=== PATIENT | male | born 1965 | race Caucasian/White ===

== ENCOUNTER 2018-06-11 16:34 | Observation (INO) | payer OTHER ==
[2018-06-11 17:24] LABS: Absolute Lymphocytes (CBC) 1.5 K/uL (0.7-4.9); Absolute Monocytes 0.7 K/uL (0.1-1.3); Absolute Neutrophil 7.8 K/uL (1.8-8.0); Basophils % 0.4 % (0-1.3); Eosinophils % 4.8 % (0-4.4); Hematocrit 38.8 % (39.6-49.0); Lymphocytes % 13.9 % (15.3-44.8); MCH 31.9 pg (27.0-35.0); MCV 92.8 fL (80-100); MPV 8.2 fL (7.6-11.3); Monocytes % 6.6 % (3.3-12.3); RBC Red Blood Cell Count 4.18 M/uL (4.33-5.43)
[2018-06-11 17:30] LABS: Protime INR 1.1
--- NOTE | 2018-06-11 17:34 | RAD REPORT ---
EXAM DESCRIPTION: RAD - Femur Left - 06/11/2018 5:26 pm CLINICAL HISTORY: Pain;Swelling Fall COMPARISON: No comparisons FINDINGS: No fracture or dislocation seen.
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
[2018-06-11 17:41] LABS: Bilirubin Total 1.1 mg/dL (0.2-1.0); Potassium 3.9 mmol/L (3.5-5.1); Protein, Total 7.4 g/dL (6.4-8.2)
--- NOTE | 2018-06-11 17:53 | RAD REPORT ---
EXAM DESCRIPTION: US - Extremity Nonvascular Limited - 06/11/2018 5:46 pm CLINICAL HISTORY: Pain;Swelling TECHNIQUE: Real-time sonographic evaluation of the area of interest was performed. FINDINGS: Poorly defined heterogenous but largely hypoechoic collection is seen along the lateral as pect of the thigh. This likely represents a large hematoma. No worrisome mass identified.
[2018-06-11] MEDS ORDERED: NA CHLORIDE 0.9% 2,000 ML ONE (18:28)
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
[2018-06-11] MEDS ORDERED: TETANUS & DIPHTHERIA TOX,ADULT 0.5 ML VIAL ONE (19:35)
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
[2018-06-11] MEDS ORDERED: ONDANSETRON 4 MG/2 ML VIAL IV PRN (19:58)
[2018-06-11] MEDS ORDERED: ACETAMINOPHEN 500 MG TAB ONE (20:28)
[2018-06-12 00:18] LABS: Hematocrit 32.3 % (39.6-49.0)
[2018-06-12] MEDS: ACETAMINOPHEN 500 MG TAB PO PRN ×2 (02:54→10:23)
[2018-06-12 03:09] LABS: Urine Appearance CLEAR; Urine Bilirubin NEGATIVE (NEG); Urine Blood NEGATIVE (NEG); Urine Color YELLOW; Urine Glucose NEGATIVE (NEG); Urine Protein NEGATIVE (NEG); Urine Specific Gravity >=1.030 (1.005-1.030); Urine Urobilinogen 0.2 mg/dL (0.2-1.0)
[2018-06-12 03:46] LABS: Urine Microscopic Reflex NO UMIC
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
[2018-06-12 05:35] LABS: Absolute Lymphocytes (CBC) 1.8 K/uL (0.7-4.9); Absolute Monocytes 1.1 K/uL (0.1-1.3); Absolute Neutrophil 5.6 K/uL (1.8-8.0); Basophils % 0.5 % (0-1.3); Eosinophils % 4.1 % (0-4.4); Hematocrit 33.3 % (39.6-49.0); Lymphocytes % 19.9 % (15.3-44.8); MCH 32.3 pg (27.0-35.0); MCV 93.3 fL (80-100); MPV 8.2 fL (7.6-11.3); Monocytes % 12.3 % (3.3-12.3); RBC Red Blood Cell Count 3.57 M/uL (4.33-5.43)
[2018-06-12 05:49] LABS: Protime INR 1.09
[2018-06-12 05:55] LABS: Potassium 4.4 mmol/L (3.5-5.1)
--- NOTE | 2018-06-12 08:07 | EKG ---
Test Date: 2018-06-11 Test Time: 18:20:43 Chairman Of The Board: MICHELLE MEASUREMENT RESULTS: Intervals: Rate: 46 CA: 128 QRSD: 88 QT: 430 QTc: 376 [place]: P: 69 CA: 128 QRS: 77 T: 47 INTERPRETIVE STATEMENTS: Sinus bradycardia Possible Left atrial enlargement Borderline ECG No previous ECG available for comparison Electronically Signed On 06-12-18 08:06:48 CDT by Torsten Garrett
--- NOTE | 2018-06-12 11:08 | P.DS ---
Admission Date: 06/11/18 Discharge Date: 06/12/18 Disposition: ROUTINE DISCHARGE Discharge Condition: GOOD Hospital Course: unremarkable Vital Signs/Physical Exam: Temp Pulse Resp BP Pulse Ox 98.1 F 57 20 119/76 99 06/12/18 08:00 06/12/18 08:00 06/12/18 08:00 06/12/18 08:00 06/12/18 08:00 General: Alert, In no apparent distress, Oriented x3, Cooperative HEENT: Normocephalic, PERRLA, Sclerae nonicteric Neck: Supple Respiratory: Clear to auscultation bilaterally Cardiovascular: No edema, Normal pulses Gastrointestinal: Soft and benign, No tenderness, No rebound, No guarding Musculoskeletal: No erythema, No warmth, Other (hematome stable, non pulsatile) Integumentary: Skin breakdown (abrasions superficial) Neurological: Normal speech, Cranial nerves 3-12 intact External genitalia: No edema, Non-tender Rectal: Deferred Laboratory Data at Discharge: WBC 8.9 K/uL (4.3-10.9) D 06/12/18 05:21 Hgb 11.5 g/dL (13.6-17.9) L 06/12/18 05:21 Hct 33.3 % (39.6-49.0) L 06/12/18 05:21 Plt Count 146 K/uL (152-406) L 06/12/18 05:21 PT 12.9 SECONDS (9.5-12.5) H 06/12/18 05:21 INR 1.09 06/12/18 05:21 APTT 25.4 SECONDS (24.3-36.9) 06/12/18 05:21 Sodium 142 mmol/L (136-145) 06/12/18 05:21 Potassium 4.4 mmol/L (3.5-5.1) 06/12/18 05:21 BUN 15 mg/dL (7-18) 06/12/18 05:21 Creatinine 0.90 mg/dL (0.55-1.3) 06/12/18 05:21 Glucose 106 mg/dL (74-106) 06/12/18 05:21 Total Bilirubin 1.1 mg/dL (0.2-1.0) H 06/11/18 17:10 AST 29 U/L (15-37) 06/11/18 17:10 ALT 28 U/L (12-78) 06/11/18 17:10 Alkaline Phosphatase 47 U/L (45-117) 06/11/18 17:10 Troponin I < 0.02 ng/mL (0.0-0.045) 06/11/18 18:25 Home Medications: Escitalopram Oxalate [Lexapro] 1 tab PO DAILY 06/11/18 Codeine/APAP [Tylenol W/Codeine #3 tab] 1 tab PO Q4HP PRN #20 tab 06/12/18 New Medications: Codeine/APAP [Tylenol W/Codeine #3 tab] 1 tab PO Q4HP PRN #20 tab PRN Reason: Pain Patient Discharge Instructions: no heavy lifting, no contact sport until next MD appt Diet: AHA Followup: Emeterio Sykes MD [ACTIVE - CAN ADMIT] -
== END 2018-06-12 13:53 | disposition home or self-care (01) ==
LOC: ER 16:34 → ERHOLD 19:57 → 2ND 21:06
PROVIDERS: ADMIT Surgery; ATTEND Surgery
DX: S40.012A Contusion of left shoulder, initial encounter (principal); S70.12XA Contusion of left thigh, initial encounter; W17.89XA Other fall from one level to another, initial encounter; Y93.55 Activity, bike riding; Y92.9 Unspecified place or not applicable; F41.9 Anxiety disorder, unspecified; J45.909 Unspecified asthma, uncomplicated; Z88.2 Allergy status to sulfonamides; Z23 Encounter for immunization
CPT/HCPCS: 36415; 70450; 71260; 72125; 74177; 76882; 80048; 80053; 81003; 84484; 85014; 85018; 85025; 85610; 85730; 86850; 86900; 86901; 90714; 93005; 96360; 96361; 99285; G0378; J7030; Q9967

== ENCOUNTER 2018-12-09 10:10 | Emergency (ER) | payer OTHER ==
--- NOTE | 2018-12-09 10:23 | EDPHYS ---
Physician Documentation [facility] Name: Abhishek Dorantes Age: 53 yrs Sex: Male : 1965 Arrival Date: 12/09/2018 Time: 10:13 Bed 20 Private MD: Grayson Lind E ED Physician Jack Gruber HPI: 12/09 10:18 This 53 yrs old Male presents to ER via Unassigned with complaints of Poison kb Tanya. 10:18 The patient's rash thought to be caused by Contact allergy. The rash is located on the kb face. The rash can be described as macular, papular. Onset: The symptoms/episode began/occurred yesterday. Associated signs and symptoms: Pertinent positives: itching, Pertinent negatives: burning sensation, difficulty breathing, fever, nausea, Pain swelling of lips, swelling of throat, swelling of tongue, vomiting, wheezing. Severity of symptoms: At their worst the symptoms were mild moderate in the emergency department the symptoms are unchanged. Treatment given at home: Benadryl. The patient has experienced similar episodes in the past, a few times. The patient has not recently seen a physician. Pt reports he got poison tanya on his face while doing yard work on evening. Reports he was wearing gloves and was sweating so he thinks he rubbed his forehead and that is how it got on his face. Denies vision problems or any pain. Reports he has had poison tanya in the past and this feels the same. . Historical: - Allergies: 10:23 Sulfa (Sulfonamide Antibiotics); ss - PMHx: 10:23 Anxiety; Asthma; ss - Immunization history:: Adult Immunizations up to date. - Social history:: Smoking status: Patient/guardian denies using tobacco. - Ebola Screening: : Patient denies exposure to infectious person Patient denies travel to an Ebola-affected area in the 21 days before illness onset. ROS: 10:18 Constitutional: Negative for fever, chills, and weight loss, Eyes: Negative for injury, kb pain, redness, and discharge, ENT: Negative for injury, pain, and discharge, Neck: Negative for injury, pain, and swelling, Cardiovascular: Negative for chest pain, palpitations, and edema, Respiratory: Negative for shortness of breath, cough, wheezing, and pleuritic chest pain, Abdomen/GI: Negative for abdominal pain, nausea, vomiting, diarrhea, and constipation, MS/Extremity: Negative for injury and deformity, Neuro: Negative for headache, weakness, numbness, tingling, and seizure. 10:18 Skin: Positive for erythema, rash, swelling, of the left cheek and left side of forehead. Exam: 10:18 Constitutional: This is a well developed, well nourished patient who is awake, alert, kb and in no acute distress. Head/Face: Normocephalic, atraumatic. ENT: Nares patent. No nasal discharge, no septal abnormalities noted. Tympanic membranes are normal and external auditory canals are clear. Oropharynx with no redness, swelling, or masses, exudates, or evidence of obstruction, uvula midline. Mucous membranes moist. Neck: Trachea midline, no thyromegaly or masses palpated, and no cervical lymphadenopathy. Supple, full range of motion without nuchal rigidity, or vertebral point tenderness. No Meningismus. Chest/axilla: Normal chest wall appearance and motion. Nontender with no deformity. No lesions are appreciated. Cardiovascular: Regular rate and rhythm with a normal S1 and S2. No gallops, murmurs, or rubs. Normal PMI, no JVD. No pulse deficits. Respiratory: Lungs have equal breath sounds bilaterally, clear to auscultation and percussion. No rales, rhonchi or wheezes noted. No increased work of breathing, no retractions or nasal flaring. Abdomen/GI: Soft, non-tender, with normal bowel sounds. No distension or tympany. No guarding or rebound. No evidence of tenderness throughout. MS/ Extremity: Pulses equal, no cyanosis. Neurovascular intact. Full, normal range of motion. Neuro: Awake and alert, GCS 15, oriented to person, place, time, and situation. Cranial nerves II-XII grossly intact. Motor strength 5/5 in all extremities. Sensory grossly intact. Cerebellar exam normal. Normal gait. 10:18 Skin: consistent with contact dermatitis, on the left side of forehead and left cheek. Vital Signs: 10:23 BP 137 / 76; Pulse 64; Resp 16; Temp 98.3(TE); Pulse Ox 98% ; Pain 0/10; ss MDM: 10:14 Patient medically screened. kb 10:18 Data reviewed: vital signs, nurses notes. Data interpreted: Pulse oximetry: on room air kb is 100 %. Interpretation: normal. Counseling: I had a detailed discussion with the patient and/or guardian regarding: the historical points, exam findings, and any diagnostic results supporting the discharge/admit diagnosis, the need for outpatient follow up, a family practitioner, to return to the emergency department if symptoms worsen or persist or if there are any questions or concerns that arise at home. Administered Medications: 10:23 Drug: predniSONE 40 mg Route: PO; em 10:25 Follow up: Response: Medication administered at discharge. em 10: Drug: Pepcid 20 mg Route: PO; em 10:25 Follow up: Response: Medication administered at discharge. em Disposition: 12/09/18 10:23 Discharged to Home. Impression: Allergic contact dermatitis due to plants, except food. - Condition is Stable. - Discharge Instructions: Poison Tanya Dermatitis, [id number]. - Prescriptions for Pepcid 20 mg Oral Tablet - take 1 tablet by ORAL route every 12 hours for 5 days; 10 tablet. Prednisone 20 mg Oral Tablet - take 1 tablet by ORAL route once daily for 5 days; 5 tablet. - Medication Reconciliation Form, Thank You Letter, Antibiotic Education, Prescription Opioid Use form. - Follow up: Emergency Department; When: As needed; Reason: Worsening of condition. Follow up: Grayson Lind MD; When: 2 - 3 days; Reason: Recheck today's complaints, Continuance of care, Re-evaluation by your physician. Signatures: Ailyn Connors, PRISCILA-C ENGINEERING CLERK-Bin Ortiz, ELIGIBILITY WORKER ELIGIBILITY WORKER Winsome Prado RN RN ss Corrections: (The following items were deleted from the chart) 10:31 10:23 12/09/2018 10:23 Discharged to Home. Impression: Allergic contact dermatitis due em to plants, except food. Condition is Stable. Forms are Medication Reconciliation Form, Thank You Letter, Antibiotic Education, Prescription Opioid Use. Follow up: Emergency Department; When: As needed; Reason: Worsening of condition. Follow up: Grayson Lind; When: 2 - 3 days; Reason: Recheck today's complaints, Continuance of care, Re-evaluation by your physician. kb
--- NOTE | 2018-12-09 10:23 | ER ---
Nurse's Notes [facility] Name: Abhishek Dorantes Age: 53 yrs Sex: Male : 1965 Arrival Date: 12/09/2018 Time: 10:13 Bed 20 Private MD: Grayson Lind E Diagnosis: Allergic contact dermatitis due to plants, except food Presentation: 12/09 10:19 Presenting complaint: Patient states: redness and itching to L side of face that began ss last night. Pt reports he worked in his father's garden pulling weeds two days ago and believe it may be poison rudy. Transition of care: patient was not received from another setting of care. Onset of symptoms was December 09, 2015. Risk Assessment: Do you want to hurt yourself or someone else? Patient reports no desire to harm self or others. Initial Sepsis Screen: Does the patient meet any 2 criteria? No. Patient's initial sepsis screen is negative. Does the patient have a suspected source of infection? No. Patient's initial sepsis screen is negative. Care prior to arrival: None. 10:19 Method Of Arrival: Ambulatory ss 10:19 Acuity: MITCH 4 ss Historical: - Allergies: 10:23 Sulfa (Sulfonamide Antibiotics); ss - PMHx: 10:23 Anxiety; Asthma; ss - Immunization history:: Adult Immunizations up to date. - Social history:: Smoking status: Patient/guardian denies using tobacco. - Ebola Screening: : Patient denies exposure to infectious person Patient denies travel to an Ebola-affected area in the 21 days before illness onset. Screenin:19 Abuse screen: Denies threats or abuse. Denies injuries from another. Nutritional ss screening: No deficits noted. Tuberculosis screening: No symptoms or risk factors identified. Never had TB. Fall Risk None identified. Assessment: 10:19 General: Appears in no apparent distress. comfortable, Behavior is calm, cooperative. ss Pain: Denies pain. Neuro: Level of Consciousness is awake, alert, obeys commands, Oriented to person, place, time, situation, Moves all extremities. Gait is steady, Speech is normal, Facial symmetry appears normal, Pupils are PERRLA. Cardiovascular: Capillary refill < 3 seconds is brisk in bilateral fingers. Respiratory: Airway is patent Respiratory effort is even, unlabored, Respiratory pattern is regular, symmetrical. Respiratory: Breath sounds are clear bilaterally. Denies cough, shortness of breath labored breathing, pain with respiration, pain with cough, pain with movement. GI: Patient currently denies abdominal pain, diarrhea, nausea, vomiting. : No signs and/or symptoms were reported regarding the genitourinary system. EENT: Nares are clear Oral mucosa is moist. Throat is clear. Derm: Skin is intact, is healthy with good turgor, Skin is dry, Skin is pink, warm \T\ dry. normal. Derm: Rash noted that is red, on face. Musculoskeletal: Circulation, motion, and sensation intact. Range of motion: intact in all extremities, Swelling absent. Vital Signs: 10:23 BP 137 / 76; Pulse 64; Resp 16; Temp 98.3(TE); Pulse Ox 98% ; Pain 0/10; ss ED Course: 10:13 Patient arrived in ED. mr 10:13 Grayson Lind MD is Private Physician. mr 10:14 Ailyn Connors FNP-C is [facility]. kb 10:14 Jack Gruber MD is Attending Physician. kb 10:19 Patient has correct armband on for positive identification. Bed in low position. Call ss light in reach. 10:21 Triage completed. ss 10:22 Grayson Lind MD is Referral Physician. kb 10:23 Bin Escamilla LVN is Primary Nurse. em 10:23 Arm band placed on right wrist. ss 10:26 No provider procedures requiring assistance completed. Patient did not have IV access ss during this emergency room visit. Administered Medications: 10:23 Drug: predniSONE 40 mg Route: PO; em 10:25 Follow up: Response: Medication administered at discharge. em 10:23 Drug: Pepcid 20 mg Route: PO; em 10:25 Follow up: Response: Medication administered at discharge. em Outcome: 10:23 Discharge ordered by MD. kb 10:31 Discharged to home ambulatory. em 10:31 Condition: good 10:31 Discharge instructions given to patient, Instructed on discharge instructions, follow up and referral plans. medication usage, Demonstrated understanding of instructions, follow-up care, medications, Prescriptions given X 2. 10:31 Patient left the ED. em Signatures: Ailyn Connors FNP-C FNP-Tita Case mr Bin Escamilla LVN LVN em Smirch, Winsome, RN RN ss
[2018-12-09] MEDS ORDERED: predniSONE 20 MG TAB ONE (10:29)
[2018-12-09] MEDS ORDERED: FAMOTIDINE 20 MG TAB ONE (10:29)
== END 2018-12-09 10:31 | disposition home or self-care (01) ==
LOC: ER 10:10
DX: L23.7 Allergic contact dermatitis due to plants, except food (principal); Z88.2 Allergy status to sulfonamides
CPT/HCPCS: 99283; J7512